=== PATIENT | female | born 1990 | race Two or more races ===

== ENCOUNTER → 2019-11-11 | Outpatient (CLI) | payer MEDICARE, OTHER ==
[2016-01-06 12:43] VITALS: BP 107/51
[~2019-11-11] MED LIST: IOHEXOL 300 MG/ML 50 ML VIAL. IJ ONE
== END | disposition home or self-care (01) ==
LOC: RAD 13:14
PROVIDERS: ATTEND Family Medicine
DX: N97.9 Female infertility, unspecified (principal); F17.200 Nicotine dependence, unspecified, uncomplicated; Z32.00 Encounter for pregnancy test, result unknown; Z53.21 Procedure and treatment not carried out due to patient leaving prior to being seen by health care provider
CPT/HCPCS: 36415; 84702

== ENCOUNTER 2020-08-06 02:25 | Emergency (ER) | payer MEDICARE, OTHER ==
[~2020-08-06] VITALS: Ht 170.2 cm; Wt 90.9 kg
[2020-08-06 03:10] VITALS: BP 128/57
--- NOTE | 2020-08-06 03:21 | PHYS DOC ---
Past Medical History Past Medical History: Anxiety, Depression (LALITO SHARMA MD) Past Surgical History: No Surgical History (LALITO SHARMA MD) Smoking Status: Current Every Day Smoker Alcohol Use: None Drug Use: None (LALITO SHARMA MD) General Adult EDM: Chief Complaint: ABDOMINAL PAIN HPI: HPI: Patient is a 29 year old female presents with a 1 day history of crampy abdominal pain that is worse in the upper abdomen that radiates to the lower abdomen. Patient's been recently treated for bacterial vaginosis and yeast inf ection. Says she had a subjective fever but never took her temperature. Patient denies any vomiting or diarrhea. Patient has a cough or shortness of breath. Symptoms are moderate in severity at rest and severe with palpation which makes his symptoms worse. (LALITO SHARMA MD) Review of Systems: Review of Systems: Constitutional: Patient had subjective fever but no chills Eyes: Denies change in visual acuity. [] HENT: Denies nasal congestion or sore throat. [] Respiratory: Denies cough or shortness of breath. [] Cardiovascular: Denies chest pain or edema. [] GI: Patient complains of abdominal pain but no nausea vomiting diarrhea or blood in her stool : Denies dysuria. [] Musculoskeletal: Denies back pain or joint pain. [] Integument: Denies rash. [] Neurologic: Denies headache, focal weakness or sensory changes. [] Endocrine: Denies polyuria or polydipsia. [] Lymphatic: Denies swollen glands. [] Psychiatric: Denies depression or anxiety. [] (LALITO SHARMA MD) Heart Score: Risk Factors: Risk Factors: DM, Current or recent (<one month) smoker, HTN, HLP, family history of CAD, obesity. Risk Scores: Score 0 - 3: 2.5% MACE over next 6 weeks - Discharge Home Score 4 - 6: 20.3% MACE over next 6 weeks - Admit for Clinical Observation Score 7 - 10: 72.7% MACE over next 6 weeks - Early Invasive Strategies (LALITO SHARMA MD) Current Medications: Current Medications Medications (Trade) Dose Ordered Sig/Miranda Start Time Stop Time Status Last Admin Dose Admin Morphine Sulfate (Morphine Sulfate) 4 mg 1X ONCE 08/06/20 03:15 08/06/20 03:16 UNV Ondansetron HCl (Zofran) 4 mg 1X ONCE 08/06/20 03:15 08/06/20 03:16 UNV Sodium Chloride 1,000 ml @ 1,000 mls/hr 1X ONCE 08/06/20 03:15 08/06/20 04:14 UNV (LALITO SHARMA MD) Allergies: Allergies: Allergies Coded Allergies Type Severity Reaction Last Updated Verified No Known Drug Allergies 11/11/19 No (LALITO SHARMA MD) Physical Exam: PE: Constitutional: Well developed, well nourished, no acute distress, non-toxic appearance. [] HENT: Normocephalic, atraumatic, bilateral external ears normal, no trismus nose normal. [] Eyes: PERRLA, EOMI, conjunctiva normal, no discharge. [] Neck: Normal range of motion, no tenderness, supple, no stridor. [] Cardiovascular:Heart rate regular rhythm, peripheral pulses intact cap refill is brisk Lungs & Thorax: Bilateral breath sounds clear, no respiratory distress Abdomen: Abdomen soft with mild diffuse tenderness, worse in the upper abdomen, no guarding or rebound no masses, no pulsatile masses Skin: Warm, dry, no erythema, no rash. [] Back: No tenderness, no CVA tenderness. [] Extremities: No tenderness, no cyanosis, no clubbing, ROM intact, no edema. [] Neurologic: Alert and oriented X 3, normal motor function, normal sensory function, no focal deficits noted. [] Psychologic: Affect normal, judgement normal, mood normal. [] (LALIOT SHARMA MD) PE: Constitutional: Well developed, well nourished, no acute distress, non-toxic appearance HENT: Normocephalic, atraumatic Eyes: Conjunctiva normal, no discharge Neck: Normal range of motion, no tenderness, supple Lungs & Thorax: No respiratory distress, equal chest rise and fall Abdomen: Soft, left lower abdomen/pelvic tenderness Skin: Warm, dry, no erythema, no rash Extremities: No tenderness, ROM intact, no edema Neurologic: Alert and oriented X 3, no focal deficits noted Psychologic: Affect normal, judgment normal (GIANCARLO FLORES DO) Current Patient Data: Labs: Laboratory Tests Test 08/06/20 03:28 08/06/20 03:30 White Blood Count 11.6 x10^3/uL Red Blood Count 4.81 x10^6/uL Hemoglobin 13.1 g/dL Hematocrit 39.3 % Mean Corpuscular Volume 82 fL Mean Corpuscular Hemoglobin 27 pg Mean Corpuscular Hemoglobin Concent 34 g/dL Red Cell Distribution Width 15.5 % Platelet Count 273 x10^3/uL Neutrophils (%) (Auto) 46 % Lymphocytes (%) (Auto) 41 % Monocytes (%) (Auto) 11 % Eosinophils (%) (Auto) 3 % Basophils (%) (Auto) 0 % Neutrophils # (Auto) 5.3 x10^3/uL Lymphocytes # (Auto) 4.7 x10^3/uL Monocytes # (Auto) 1.2 x10^3/uL Eosinophils # (Auto) 0.3 x10^3/uL Basophils # (Auto) 0.0 x10^3/uL Maternal Serum HCG Beta Subunit < 1 mIU/mL Sodium Level 139 mmol/L Potassium Level 4.1 mmol/L Chloride Level 107 mmol/L Carbon Dioxide Level 24 mmol/L Anion Gap 8 Blood Urea Nitrogen 15 mg/dL Creatinine 0.7 mg/dL Estimated GFR (Cockcroft-Gault) 99.6 BUN/Creatinine Ratio 21 Glucose Level 92 mg/dL Calcium Level 8.7 mg/dL Total Bilirubin 0.3 mg/dL Aspartate Amino Transf (AST/SGOT) 19 U/L Alanine Aminotransferase (ALT/SGPT) 21 U/L Alkaline Phosphatase 64 U/L Total Protein 6.4 g/dL Albumin 3.0 g/dL Albumin/Globulin Ratio 0.9 Lipase 141 U/L Urine Collection Type Unknown Urine Color Yellow Urine Clarity Clear Urine pH 5.5 Urine Specific [place] 1.025 Urine Protein Negative mg/dL Urine Glucose (UA) Negative mg/dL Urine Ketones (Stick) Negative mg/dL Urine Blood Negative Urine Nitrite Negative Urine Bilirubin Negative Urine Urobilinogen Dipstick 0.2 mg/dL Urine Leukocyte Esterase Negative Urine RBC 0 /HPF Urine WBC 1-4 /HPF Urine Squamous Epithelial Cells Few /LPF Urine Bacteria 0 /HPF Urine Mucus Mod /LPF Current Medications Medications (Trade) Dose Ordered Sig/Miranda Route PRN Reason Start Time Stop Time Status Last Admin Dose Admin Sodium Chloride 1,000 ml @ 1,000 mls/hr 1X ONCE IV 08/06/20 03:30 08/06/20 04:29 DC 08/06/20 03:50 Morphine Sulfate (Morphine Sulfate) 4 mg 1X ONCE IV 08/06/20 03:30 08/06/20 03:31 DC Ondansetron HCl (Zofran) 4 mg 1X ONCE IVP 08/06/20 03:30 08/06/20 03:31 DC 08/06/20 03:51 Ketorolac Tromethamine (Toradol 15mg Vial) 15 mg 1X ONCE IVP 08/06/20 04:00 08/06/20 04:01 DC 08/06/20 03:51 Iohexol (Omnipaque 300 Mg/ml) 75 ml 1X ONCE IV 08/06/20 04:30 08/06/20 04:31 DC 08/06/20 04:30 Info (CONTRAST GIVEN -- Rx MONITORING) 1 each PRN DAILY PRN MC SEE COMMENTS 08/06/20 04:30 08/08/20 04:29 Vital Signs: Vital Signs Date Time Temp Pulse Resp B/P (MAP) Pulse Ox O2 Delivery O2 Flow Rate FiO2 08/06/20 03:30 99 08/06/20 03:10 98.1 76 18 128/57 (80) 99 Room Air 98.1 (LALITO SHARMA MD) EKG: EKG: [] (LALITO SHARMA MD) Radiology/Procedures: Radiology/Procedures: [][facility] [address] [place] [address] IMAGING REPORT Signed PATIENT: MIKY HUI ACCOUNT: [id number] : 1990 LOCATION: ER AGE: 29 SEX: F EXAM STATUS: REG ER ORD. PHYSICIAN: LALITO SHARMA MD REASON: abd pain, epigastric to lower abd, OMNI 300, 75 ML IV PROCEDURE: CT ABD PELV W/ IV CONTRST ONLY Study: CT abdomen/pelvis with intravenous contrast Indication: Abdominal pain reportedly epigastric down to the lower abdomen. Comparison: None. Technique: Helical CT imaging performed of the abdomen and pelvis after the intravenous administration of 75 cc Omnipaque 300 contrast. Sagittal and coronal reformats were obtained. One or more of the following individualized dose reduction techniques were utilized for this examination: 1. Automated exposure control 2. Adjustment of the mA and/or kV according to patient size 3. Use of iterative reconstruction technique. Findings: The visualized lungs and mediastinal contents are within normal limits. Unremarkable liver. Postprandial configuration of the gallbladder which is decompressed. Normal biliary tree. Unremarkable pancreas, spleen and adrenal glands. Normal kidneys and collecting system to include the urinary bladder. Unremarkable uterus and right adnexa. Thick-walled left ovarian cystic focus measures 5.7 x 4.4 x 4.3 cm. No acute abnormality of the colon. Mild well-formed stool burden. A few small colonic diverticuli are noted. Normal appendix. Nonobstructed small bowel. Unremarkable stomach. Unremarkable major vasculature. No lymphadenopathy by size criteria. No significant volume free fluid. No pneumoperitoneum. No acute or aggressive osseous process. Impression: 1. No acute abnormality seen throughout the abdomen to account for reported epigastric abdominal pain. 2. Within the pelvis there is a thick walled left ovarian cyst measuring up to 5.7 x 4.4 x 4.3 cm but this could be an incidental finding given the location of patient discomfort. There are no findings by CT that would suggest cyst rupture or associated portion. Given size, eventual pelvic ultrasound could be performed to confirm stability or resolution. 3. Mild constipation. A few small diverticuli without diverticulitis. 4. Postprandial configuration of the gallbladder which is collapsed. Electronically signed by: MINDY MGAAÑA MD (08/06/2020 5:15 AM) [id number] DICTATED and SIGNED BY: MINDY MAGAÑA MD DATE: 08/06/20 0515 (LALITO SHARMA MD) Radiology/Procedures: PROCEDURE: PELVIS COMPLETE STUDY: US PELVIS COMPLETE HISTORY: Pelvic pain. COMPARISON: None TECHNIQUE: Pelvic ultrasound was performed with a transabdominal probe. FINDINGS: The uterus measures 7.6 x 4.2 x 3.4 cm. The endometrial echo measures 0.6 cm. No focal uterine parenchymal abnormality. No debris along the endometrial canal. The right ovary measures 2.8 x 2.3 x 2.3 cm and the left ovary 5.8 x 4.7 x 4.6 cm. Doppler flow is maintained to both ovaries. Thick-walled, complex focus within the left ovary measuring 5.1 x 3.7 x 3.5 cm. Doppler flow along the periphery of this structure is indeterminate for flow within the wall or to adjacent ovarian tissue. Apparent internal Doppler flow on image 30 is favored artifactual. No free fluid seen within the deep pelvis. IMPRESSION: 1. Unremarkable uterus and endometrium. 2. Complex cystic focus within the left ovary measuring 5.1 x 3.7 x 3.5 cm. The favored etiology based on echotexture is a hemorrhagic cyst though there may be some peripheral vascularity. Given the overall appearance, short-term follow-up such as in 2-4 weeks is recommended to assess for expected evolutionary changes of a hemorrhagic cyst to help confirm. Normal Doppler flow is maintained to both ovaries. Electronically signed by: MINDY MAGAÑA MD (08/06/2020 6:30 AM) [id number] (GIANCARLO FLORES DO) Course & Med Decision Making: Course & Med Decision Making 29-year-old female presents with abdominal pain. Patient CT reveals a ovarian cyst. Patient complained of upper and lower abdominal pain. Patient also states she had a fever although she never took her temperature and she is afebrile here. Patient refused morphine on initial assessment and requested Toradol. When I reassessed her at 5:30 a.m. she is still having abdominal pain, and continues declined morphine. Patient will get an ultrasound of her ovaries to rule out torsion. Patient will be signed over to Dr. Flores to follow-up on the ultrasound and final disposition is pending. pertinent Labs and Imaging studies reviewed. (See chart for details) [] (LALITO SHARMA MD) Course & Med Decision Making 0610- Signout received from Dr. Desai for patient with left pelvic pain who is pending US results after patient was found to have concern for possible ovarian cyst on CT. Labs reviewed. Patient seen and evaluated by myself. CT reviewed. US with findings of left sided complex cyst which might be hemorrhagic in nature. Radiology recommends close term follow-up/re-evaluation. A copy of US reports provided to patient to give to [facility] for outpatient follow-up. Patient stable for discharge with outpatient follow-up with PCP/[facility]. Discussed findings and plan with patient, who acknowledges understanding and agreement. (GIANCARLO FLORES DO) Dragon Disclaimer: Dragon Disclaimer: This electronic medical record was generated, in whole or in part, using a voice recognition dictation system. (LALITO SHARMA MD) Departure Departure Impression: Primary Impression: Abdominal pain Qualified Codes: R10.32 - Left lower quadrant pain Additional Impression: Ovarian cyst Qualified Codes: N83.202 - Unspecified ovarian cyst, left side Disposition: 01 DC HOME SELF CARE/HOMELESS Condition: STABLE Referrals: GIANCARLO ROBERTS MD (PCP) Patient Instructions: Ovarian Cyst, [id number] Additional Instructions: Please follow closely with your family physician and/or [facility] for further evaluation of your ovarian cyst. Please given them the copy of you US report. Take over the counter Tylenol and/or Ibuprofen for pain or discomfort. LALITO SHARMA MD Aug 06, 2020 03:20 GIANCARLO FLORES DO Aug 06, 2020 08:11
[2020-08-06] MEDS ORDERED: MORPHINE SULFATE 4 MG/ML VIAL. IV ONE (03:30)
[2020-08-06] MEDS ORDERED: ONDANSETRON PF 4 MG/2 ML VIAL. IVP ONE (03:30)
[2020-08-06] MEDS ORDERED: IV NORMAL SALINE 1000ML BAG 1,000 ML IV ONE (03:30)
[2020-08-06 03:52] LABS: CALCIUM 8.7 mg/dL (8.5-10.1); CREATININE 0.7 mg/dL (0.6-1.0); GFR 99.6; POTASSIUM 4.1 mmol/L (3.5-5.1)
[2020-08-06 03:58] LABS: ALBUMIN/GLOBULIN RATIO 0.9 (1.0-1.7); TOTAL BILIRUBIN 0.3 mg/dL (0.2-1.0); TOTAL PROTEIN 6.4 g/dL (6.4-8.2)
[2020-08-06] MEDS ORDERED: KETOROLAC 15 MG/ML VIAL. IVP ONE (04:00)
[2020-08-06 04:05] LABS: BASO % 0 % (0-3); EOS # 0.3 x10^3/uL (0.0-0.7); EOS % 3 % (0-3); HEMATOCRIT 39.3 % (36.0-47.0); HEMOGLOBIN 13.1 g/dL (12.0-15.5); LYMPH # 4.7 x10^3/uL (1.0-4.8); LYMPH % 41 % (24-48); MEAN CORPUSCULAR HEMOGLOBIN 27 pg (25-35); MEAN CORPUSCULAR HGB CONC 34 g/dL (31-37); MEAN CORPUSCULAR VOLUME 82 fL (79-100); MONO # 1.2 x10^3/uL (0.0-1.1); MONO % 11 % (0-9); NEUT # 5.3 x10^3/uL (1.8-7.7); NEUT % 46 % (31-73); PLATELET COUNT 273 x10^3/uL (140-400); RED BLOOD COUNT 4.81 x10^6/uL (3.50-5.40); RED CELL DISTRIBUTION WIDTH 15.5 % (11.5-14.5); WHITE BLOOD COUNT 11.6 x10^3/uL (4.0-11.0)
[2020-08-06 04:19] LABS: BILIRUBIN,URINE NEGATIVE (NEG); CLARITY,URINE CLEAR; COLOR,URINE YELLOW; NITRITE,URINE NEGATIVE (NEG); PH,URINE 5.5 (<5.0-8.0); PROTEIN,URINE NEGATIVE (NEG-TRACE); UROBILINOGEN,URINE 0.2 mg/dL (0.2 mg/dL)
[2020-08-06 04:23] LABS: BACTERIA,URINE 0 /HPF (0-FEW); RBC,URINE 0 /HPF (0-2)
[2020-08-06] MEDS ORDERED: IOHEXOL 300 MG/ML 100ML VIAL. IV ONE (04:30)
[2020-08-06] MEDS ORDERED: CONTRAST GIVEN. MC PRN (04:30)
--- NOTE | 2020-08-06 05:18 | RAD ---
Study: CT abdomen/pelvis with intravenous contrast Indication: Abdominal pain reportedly epigastric down to the lower abdomen. Comparison: None. Technique: Helical CT imaging performed of the abdomen and pelvis after the intravenous administration of 75 cc Omnipaque 300 contrast. Sagittal and coronal reformats were obtained. One or more of the following individualized dose reduction techniques were utilized for this examination: 1. Automated exposure control 2. Adjustment of the mA and/or kV according to patient size 3. Use of iterative reconstruction technique. Findings: The visualized lungs and mediastinal contents are within normal limits. Unremarkable liver. Postprandial configuration of the gallbladder which is decompressed. Normal biliary tree. Unremarkable pancreas, spleen and adrenal glands. Normal kidneys and collecting system to include the urinary bladder. Unremarkable uterus and right adnexa. Thick-walled left ovarian cystic focus measures 5.7 x 4.4 x 4.3 cm. No acute abnormality of the colon. Mild well-formed stool burden. A few small colonic diverticuli are noted. Normal appendix. Nonobstructed small bowel. Unremarkable stomach. Unremarkable major vasculature. No lymphadenopathy by size criteria. No significant volume free fluid. No pneumoperitoneum. No acute or aggressive osseous process. Impression: 1. No acute abnormality seen throughout the abdomen to account for reported epigastric abdominal pain. 2. Within the pelvis there is a thick walled left ovarian cyst measuring up to 5.7 x 4.4 x 4.3 cm but this could be an incidental finding given the location of patient discomfort. There are no findings by CT that would suggest cyst rupture or associated portion. Given size, eventual pelvic ultrasound could be performed to confirm stability or resolution. 3. Mild constipation. A few small diverticuli without diverticulitis. 4. Postprandial configuration of the gallbladder which is collapsed. Electronically signed by: MINDY MAGAÑA MD (08/06/2020 5:15 AM) [id number]
--- NOTE | 2020-08-06 06:33 | RAD ---
STUDY: US PELVIS COMPLETE HISTORY: Pelvic pain. COMPARISON: None TECHNIQUE: Pelvic ultrasound was performed with a transabdominal probe. FINDINGS: The uterus measures 7.6 x 4.2 x 3.4 cm. The endometrial echo measures 0.6 cm. No focal uterine parenchymal abnormality. No debris along the endometrial canal. The right ovary measures 2.8 x 2.3 x 2.3 cm and the left ovary 5.8 x 4.7 x 4.6 cm. Doppler flow is maintained to both ovaries. Thick-walled, complex focus within the left ovary measuring 5.1 x 3.7 x 3.5 cm. Doppler flow along the periphery of this structure is indeterminate for flow within the wall or to adjacent ovarian tissue. Apparent internal Doppler flow on image 30 is favored artifactual. No free fluid seen within the deep pelvis. IMPRESSION: 1. Unremarkable uterus and endometrium. 2. Complex cystic focus within the left ovary measuring 5.1 x 3.7 x 3.5 cm. The favored etiology based on echotexture is a hemorrhagic cyst though there may be some peripheral vascularity. Given the overall appearance, short-term follow-up such as in 2-4 weeks is recommended to assess for expected evolutionary changes of a hemorrhagic cyst to help confirm. Normal Doppler flow is maintained to both ovaries. Electronically signed by: MINDY MAGAÑA MD (08/06/2020 6:30 AM) [id number]
== END 2020-08-06 08:22 | disposition home or self-care (01) ==
LOC: ER 02:25
DX: N83.292 Other ovarian cyst, left side (principal); R10.32 Left lower quadrant pain; R06.02 Shortness of breath; R05 Cough; F41.9 Anxiety disorder, unspecified; F32.9 Major depressive disorder, single episode, unspecified; F17.200 Nicotine dependence, unspecified, uncomplicated
CPT/HCPCS: 36415; 74177; 76856; 80053; 81001; 81025; 83690; 84702; 85025; 96361; 96374; 96375; 99285; J1885; J2405; J7030; Q9967

== ENCOUNTER 2020-10-01 13:28 | Emergency (ER) | payer MEDICARE, OTHER ==
[~2020-10-01] VITALS: Ht 170.2 cm; Wt 86.3 kg
[2020-10-01 14:33] VITALS: BP 131/64
--- NOTE | 2020-10-01 14:39 | PHYS DOC ---
Past Medical History Past Medical History: No Pertinent History Past Surgical History: No Surgical History Smoking Status: Current Every Day Smoker Alcohol Use: Occasionally Drug Use: None General Adult EDM: Chief Complaint: ABDOMINAL PAIN HPI: HPI: Patient is a 29 year old female who presents to the ED today stating she has ovarian cyst in the left ovary with left lower quadrant pain for 2 months. Patient is very short in her answers. On asking her where she was diagnosed with ovarian cyst and what they told about it. She states she just wants the cyst checked today. Informed patient typically if you have an ovarian cyst you need to see an CLOCKSMITH for follow up you do not use the emergency room to just check for the cyst. She states I need somebody to check on it because it is hemorrhagic cyst. Informed we can do ultrasound and look to make sure she does not have a torsion or anything else but this kind of cyst need to be seen by an CLOCKSMITH for follow up. On asking patient if she is or not, she states she is not . On asking her if she is using any form of control she gets upset stating she is not using anything and she is not sexually active. She started stating we do not care. Informed patient this are typical questions we ask women in child bearing age. Patient continues to be very short in her answers. Informed patient we do not mind assessing her in the ED but it is important to see an OBGYN for hemorrhagic cyst or any type of ovarian cyst. I ordered pelvic ultrasound. Review of Systems: Review of Systems: Constitutional: Denies fever or chills. [] GI: Reports left pelvic pain, denies nausea, vomiting, bloody stools or diarrhea. [] : Denies dysuria. [] Musculoskeletal: Denies back pain or joint pain. [] Integument: Denies rash. [] Neurologic: Denies headache, focal weakness or sensory changes. [] Psychiatric: Denies depression or anxiety. [] Heart Score: Risk Factors: Risk Factors: DM, Current or recent (<one month) smoker, HTN, HLP, family history of CAD, obesity. Risk Scores: Score 0 - 3: 2.5% MACE over next 6 weeks - Discharge Home Score 4 - 6: 20.3% MACE over next 6 weeks - Admit for Clinical Observation Score 7 - 10: 72.7% MACE over next 6 weeks - Early Invasive Strategies Allergies: Allergies: Allergies Coded Allergies Type Severity Reaction Last Updated Verified No Known Drug Allergies 11/11/19 No Physical Exam: PE: Constitutional: Well developed, well nourished, no acute distress, non-toxic appearance. [] Abdomen: Bowel sounds normal, soft, no tenderness, no masses, no pulsatile masses. [] Skin: Warm, dry, no erythema, no rash. [] Back: No tenderness, no CVA tenderness. [] Extremities: No tenderness, no cyanosis, no clubbing, ROM intact, no edema. [] Neurologic: Alert and oriented X 3, normal motor function, normal sensory function, no focal deficits noted. [] Psychologic: Affect normal, judgement normal, mood normal. [] Current Patient Data: Labs: Laboratory Tests Test 10/01/20 14:09 POC Urine HCG, Qualitative Hcg negative (Negative) Vital Signs: Vital Signs Date Time Temp Pulse Resp B/P (MAP) Pulse Ox O2 Delivery O2 Flow Rate FiO2 10/01/20 13:57 98.6 86 17 129/60 (83) 97 Room Air 98.6 EKG: EKG: [] Radiology/Procedures: Radiology/Procedures: [] Course & Med Decision Making: Course & Med Decision Making Pertinent Labs and Imaging studies reviewed. (See chart for details) See HPI, patient is in the ED for pelvic pain since July from a hemorrhagic cyst. She returns today requesting we check on the cyst. On further inquiry with the patient has seen an CLOCKSMITH for this or not, she became upset stating when not doing anything for her. Informed her this are typical questions that need to be answered while we care for patients. Informed her even if we do another ultrasound if there is no acute finding like an ovarian torsion she will have to see an CLOCKSMITH. She became upset. She requested to sign out AGAINST MEDICAL ADVICE and leave. She is alert oriented x4 and able to make her own decisions. She signed out on the left. Mary Ann Disclaimer: Mary Ann Disclaimer: This electronic medical record was generated, in whole or in part, using a voice recognition dictation system. Departure Departure Impression: Primary Impression: Pelvic pain Disposition: 07 AMA/ELOPED/LWBS Condition: STABLE Referrals: GIANCARLO ROBERTS MD (PCP) GILMAR HENRIQUEZ APRN Oct 01, 2020 14:39
== END 2020-10-01 14:35 | disposition left against medical advice (07) ==
LOC: ER 13:28
DX: R10.2 Pelvic and perineal pain (principal); F17.200 Nicotine dependence, unspecified, uncomplicated
CPT/HCPCS: 81025; 99282; 99283